=== PATIENT | female | born 1990 | race Caucasian/White ===

== ENCOUNTER 2016-10-16 01:23 | Emergency (ER) | payer SELFPAY ==
[~2016-10-16] VITALS: Ht 157.5 cm; Wt 62.6 kg
[~2016-10-16 01:23] MED LIST: AMOX500C3 PO; CLAR500T3 PO; FAMO20TA11 PO; PANT40TA PO; PROP80TA2 PO
[2016-10-16 01:25] VITALS: Ht 157.5 cm; Wt 62.6 kg
[2016-10-16] MEDS ORDERED: FAMOTIDINE 20MG/102 ML D5W IV STA (01:40)
[2016-10-16] MEDS ORDERED: ONDANSETRON INJ 2 MG/ML 2 ML VIAL IV STA (01:40)
[2016-10-16] MEDS ORDERED: LIDOCAINE HCL 2% VISC SOLN 20 ML UDC ONE (01:44)
[2016-10-16] MEDS ORDERED: ALUMINUM/MAGNESIUM SUSP 30 ML UDC ONE (01:44)
[2016-10-16] MEDS ORDERED: SODIUM CHLORIDE 0.9% 1000ML 1,000 ML IV ONE (01:45)
[2016-10-16] MEDS ORDERED: GI COCKTAIL PO ONE (01:45)
[2016-10-16 02:18] LABS: BUN/CREATININE RATIO 29.9 (10-20); CALCIUM 8.3 mg/dl (8.5-10.1); CREATININE 0.58 mg/dl (0.60-1.20); POTASSIUM 3.4 mmol/L (3.5-5.1)
[2016-10-16 02:21] LABS: ALB/GLOB RATIO 1.1 (0.9-2)
[2016-10-16 02:25] LABS: BASO % 0.2 %; BASO ABS # 0.02 K/uL (0-0.2); COMPLETE YES; EOS % 1.1 %; HEMATOCRIT 41.9 % (37-47); IG% 0.2 %; LYMPH % 15.4 %; LYMPH ABS # 2.03 K/uL (1.2-3.4); MEAN CELL VOLUME 87.8 fL (80-100); MEAN CORPUSCULAR HEMOGLOBIN 30.6 pg (25-34); MEAN CORPUSCULAR HGB CONC 34.8 g/dl (32-36); MEAN PLATELET VOLUME 12.9 fL (7.4-10.4); MONO % 5.5 %; NEUT % 77.6 %; PLATELET COUNT 85 K/uL (130-400); PLT ESTIMATE DECREASED; RED BLOOD COUNT 4.77 M/uL (4.2-5.4)
[2016-10-16] MEDS ORDERED: ONDA4TAB10 SL (03:01)
[2016-10-16] MEDS ORDERED: PANT40TA PO (03:01)
[2016-10-16 03:05] VITALS: BP 101/59; PULSE 83; TEMP 36.9; O2SAT 96
--- NOTE | 2016-10-16 08:46 | DIAGNOSTIC IMAGING REPORT ---
PA CHEST WITH ABDOMINAL SERIES CLINICAL HISTORY: Epigastric abdominal pain. Nausea and vomiting. FINDINGS: A PA chest radiograph is compared to study dated 06/20/2016. The cardiomediastinal silhouette is unremarkable. Mild elevation of the right hemidiaphragm is similar to previous. The lungs and pleural spaces are clear. No pneumothorax is seen. The bony thorax is grossly intact. Supine and erect abdominal radiographs are compared to study dated 06/20/2016 and correlated with abdominal CT dated 09/06/2016. There is a nonobstructed abdominal bowel gas pattern. No intraperitoneal free air is seen. There is mild to moderate colonic fecal retention. No abnormal abdominal calcifications are identified. The lumbosacral spine and bony pelvis appear intact. IMPRESSION: 1. No active disease in the chest. 2. Unremarkable abdominal radiographs. Electronically signed by: Roberto Vo M.D. 10/16/2016 8:44 AM
--- NOTE | 2016-10-16 22:09 | EMERGENCY ROOM VISIT NOTE ---
History First contact with patient: 01:30 Chief Complaint: ABDOMINAL PAIN Stated Complaint: ABD PAIN Nursing Triage Summary: Patient c/o abdominal pain that began 3 hours [facility] n/v[facility] History of Present Illness The patient is a 26 year old female who presents to the Emergency Room with complaints of epigastric abdominal pain which began about 3 hours ago. The patient did have one episode of emesis, which she states was red in nature. She has been nauseated since, but has not had repeat vomiting. The patient has a history of H. pylori infection that was treated as an outpatient several months ago. She's not had fever or chills. She does not have lower abdominal pain. She denies chance of . She is no difficulty using the bathroom , and is without a history of abdominal surgery. She previously was on Pepcid, but has not had this medication in more than one month. She has not taken anything [id number] for her symptoms. Review of Systems More than 10 systems were reviewed and otherwise negative with the exception of history of present illness. Past Medical/Surgical History Medical Problems: (1) History of Helicobacter pylori infection Family History No pertinent family history Social History Smoking Status: Current Every Day Smoker Alcohol Use: occasionally Drug Use: none Marital Status: single Housing Status: lives with roommate Occupation Status: unemployed Current/Historical Medications Scheduled Famotidine (Pepcid), 20 MG PO DAILY Ondasetron Odt (Zofran Odt), 4 MG SL Q6H Pantoprazole Sodium (Protonix), 40 MG PO QAM Pantoprazole Sodium (Protonix), 40 MG PO BID Propranolol (Inderal), 80 MG PO BID Allergies Coded Allergies: No Known Allergies (Verified , 10/16/16) Physical Exam Vital Signs Date Time Temp Pulse Resp B/P Pulse Ox O2 Delivery O2 Flow Rate FiO2 10/16/16 03:05 36.9 83 16 101/59 96 10/16/16 02:47 83 16 101/59 96 Room Air 10/16/16 01:25 36.9 97 18 106/69 99 Room Air Pain Rating (0-10): 2.0 Physical Exam VITALS: Vitals are noted on the nurse's note and reviewed by myself. Vital signs stable. GENERAL: Well-developed, well-nourished, female, who is in no acute distress and resting comfortably. Patient is cooperative with the examination. HEAD: Normocephalic atraumatic. HEART: Regular rate and rhythm without murmurs gallops or rubs. LUNGS: Clear to auscultation bilaterally without wheezes, rales or rhonchi. No retractions or accessory muscle use. ABDOMEN: Positive normal bowel sounds x 4. Soft with mild epigastric tenderness on palpation. No lower abdominal tenderness. No rebound or guarding. No CVA tenderness. MUSCULOSKELETAL: No muscle atrophy, erythema, or edema noted. Full range of motion without joint tenderness in all extremities. NEURO: Patient was alert and oriented to person place and time. CN II through XII grossly intact. Medical Decision & Procedures ER Provider Diagnostic Interpretation: PA CHEST WITH ABDOMINAL SERIES CLINICAL HISTORY: Epigastric abdominal pain. Nausea and vomiting. FINDINGS: A PA chest radiograph is compared to study dated 06/20/2016. The cardiomediastinal silhouette is unremarkable. Mild elevation of the right hemidiaphragm is similar to previous. The lungs and pleural spaces are clear. No pneumothorax is seen. The bony thorax is grossly intact. Supine and erect abdominal radiographs are compared to study dated 06/20/2016 and correlated with abdominal CT dated 09/06/2016. There is a nonobstructed abdominal bowel gas pattern. No intraperitoneal free air is seen. There is mild to moderate colonic fecal retention. No abnormal abdominal calcifications are identified. The lumbosacral spine and bony pelvis appear intact. IMPRESSION: 1. No active disease in the chest. 2. Unremarkable abdominal radiographs. Laboratory Results 10/16/16 01:45 Red Blood Count 4.77, Mean Corpuscular Volume 87.8, Mean Corpuscular Hemoglobin 30.6, Mean Corpuscular Hemoglobin Concent 34.8, Mean Platelet Volume 12.9, Neutrophils (%) (Auto) 77.6, Lymphocytes (%) (Auto) 15.4, Monocytes (%) (Auto) 5.5, Eosinophils (%) (Auto) 1.1, Basophils (%) (Auto) 0.2, Neutrophils # (Auto) 10.24, Lymphocytes # (Auto) 2.03, Monocytes # (Auto) 0.73, Eosinophils # (Auto) 0.15, Basophils # (Auto) 0.02 10/16/16 01:45 Test 10/16/16 01:45 White Blood Count 13.20 K/uL (4.8-10.8) Red Blood Count 4.77 M/uL (4.2-5.4) Hemoglobin 14.6 g/dL (12.0-16.0) Hematocrit 41.9 % (37-47) Mean Corpuscular Volume 87.8 fL (80-100) Mean Corpuscular Hemoglobin 30.6 pg (25-34) Mean Corpuscular Hemoglobin Concent 34.8 g/dl (32-36) Platelet Count 85 K/uL (130-400) Mean Platelet Volume 12.9 fL (7.4-10.4) Neutrophils (%) (Auto) 77.6 % Lymphocytes (%) (Auto) 15.4 % Monocytes (%) (Auto) 5.5 % Eosinophils (%) (Auto) 1.1 % Basophils (%) (Auto) 0.2 % Neutrophils # (Auto) 10.24 K/uL (1.4-6.5) Lymphocytes # (Auto) 2.03 K/uL (1.2-3.4) Monocytes # (Auto) 0.73 K/uL (0.11-0.59) Eosinophils # (Auto) 0.15 K/uL (0-0.5) Basophils # (Auto) 0.02 K/uL (0-0.2) RDW Standard Deviation 41.6 fL (36.4-46.3) RDW Coefficient of Variation 12.9 % (11.5-14.5) Immature Granulocyte % (Auto) 0.2 % Immature Granulocyte # (Auto) 0.03 K/uL (0.00-0.02) Platelet Estimate DECREASED Anion Gap 10.0 mmol/L (3-11) Est Creatinine Clear Calc Drug Dose 126.8 ml/min Estimated GFR () 146.4 Estimated GFR (Non- 126.3 BUN/Creatinine Ratio 29.9 (10-20) Calcium Level 8.3 mg/dl (8.5-10.1) Total Bilirubin 0.2 mg/dl (0.2-1) Aspartate Amino Transf (AST/SGOT) 14 U/L (15-37) Alanine Aminotransferase (ALT/SGPT) 19 U/L (12-78) Alkaline Phosphatase 51 U/L (45-117) Total Protein 7.3 gm/dl (6.4-8.2) Albumin 3.8 gm/dl (3.4-5.0) Globulin 3.5 gm/dl (2.5-4.0) Albumin/Globulin Ratio 1.1 (0.9-2) Lipase 116 U/L (73-393) Medications Administered Medications (Trade) Dose Ordered Sig/Harjit Route Start Time Stop Time Status Last Admin Dose Admin Sodium Chloride (Nss 1000ml) 1,000 ml @ 999 mls/hr Q1H1M ONCE IV 10/16/16 01:45 10/16/16 02:45 DC 10/16/16 01:49 999 MLS/HR Ondansetron HCl (Zofran Inj) 4 mg NOW STAT IV 10/16/16 01:40 10/16/16 01:42 DC 10/16/16 01:48 4 MG Famotidine (Pepcid 20mg/100 ml) 20 mg ONE STAT IV 10/16/16 01:40 10/16/16 01:43 DC 10/16/16 01:48 20 MG Al Hydroxide/Mg Hydroxide (Maalox Susp) 30 ml STK-MED ONCE .ROUTE 10/16/16 01:44 10/16/16 01:45 DC 10/16/16 01:48 30 ML Lidocaine HCl (Viscous Lidocaine 2% Soln) 20 ml STK-MED ONCE .ROUTE 10/16/16 01:44 10/16/16 01:45 DC 10/16/16 01:48 20 ML ED Course Physical exam and history were performed. Nursing notes and EMR were reviewed. Patient appears to have epigastric abdominal pain with one episode of emesis over the past 3 hours. I examined the patient does not appear toxic, but she does have some mild epigastric tenderness on palpation. Extremities she has a history of H. pylori in the past IV access was established and labs were obtained. The patient was hydrated with normal saline and given IV Protonix. She is also given a GI cocktail. Plain films of the chest and abdomen were ordered. We were not able to obtain an emesis sample for guaiac testing. The patient's blood work is as above and was reviewed. She does not have a significantly elevated white blood count, anemia, bandemia, or gross electrolyte imbalance. Lipase and transaminases are nondiagnostic. The patient 's x-rays are without evidence of free air or significant obstructive process. She did have notable improvement of her epigastric abdominal pain with the GI cocktail. I discussed options of care with the patient, who feels comfortable with discharge home. I suspect her discomfort is related to a gastritis, and we will give her a continuation course of a proton inhibitor. The patient needs to follow with her PCP or GI the next few days for a recheck. If she is not able to see them, I did recommend that she return to the ER for repeat abdominal examination. She certainly is invited back if she has worsening symptoms. The patient voiced understanding of this plan and rated her discomfort a 0/10 at the time of departure. The chart was completed utilizing [employer] Speech Voice Recognition Software. Grammatical errors, random word insertions, pronoun errors, and incomplete sentences are an occasional consequence of this system due to software limitations, ambient noise, and hardware issues. Any formal questions or concerns about the content, text, or information contained within the body of this dictation should be directly addressed to the provider for clarification. . Medical Decision Differential diagnosis: Etiologies such as appendicitis, diverticulitis, PUD, biliary pathology, UTI, pancreatitis, obstruction, mesenteric ischemia, aortic pathology, infections, inflammatory bowel disease, renal colic, as well as others were entertained. Impression Primary Impression: Epigastric abdominal pain Departure Information Dispostion Home / Self-Care Condition GOOD Prescriptions Ondasetron Odt (ZOFRAN ODT) 4 Mg Tab 4 MG SL Q6H for Nausea, #12 TAB Prov: Preet Sahni PA-C 10/16/16 Pantoprazole Sodium (PROTONIX) 40 Mg Tab 40 MG PO BID, #30 TAB Prov: Preet Sahni PA-C 10/16/16 Referrals Mando Cartagena MD Forms HOME CARE DOCUMENTATION FORM, IMPORTANT VISIT INFORMATION Patient Instructions A Signature Page, [facility] Additional Instructions You were seen and evaluated today on an emergency basis only. This is not a substitute for, or an effort to provide, complete comprehensive medical care. It is not possible to recognize and treat all injuries or illnesses in a single emergency department visit. For this reason it is recommended that you followup with your primary care physician, medical records library professor, or back in the emergency department in the next 1 -2 days for recheck of your symptoms. We have provided information for local medical records library professor, Dr. Diehl. You will likely need further evaluation by gastroenterology for your symptoms. If symptoms return or worsen please return immediately. Zofran 1 tablet every 6 hrs as needed for nausea. Take Protonix 40 mg twice daily You are welcome to return to the emergency department anytime with new, worsening, or concerning symptoms.
== END 2016-10-16 03:05 | disposition home or self-care (01) ==
LOC: C.EDB 01:24
DX: R10.13 Epigastric pain (principal); F17.200 Nicotine dependence, unspecified, uncomplicated

== ENCOUNTER 2016-11-16 14:11 | Emergency (ER) | payer SELFPAY ==
[~2016-11-16] VITALS: Ht 157.5 cm; Wt 64.1 kg
[~2016-11-16 14:11] MED LIST changes: -AMOX500C3 PO; -CLAR500T3 PO; +ONDA4TAB10 SL
[2016-11-16 14:20] VITALS: BP 111/73; PULSE 84; TEMP 37.2; O2SAT 96; Ht 157.5 cm; Wt 64.1 kg
--- NOTE | 2016-11-16 14:51 | DIAGNOSTIC IMAGING REPORT ---
RIGHT HAND 3 VIEWS CLINICAL HISTORY: Thumb pain. Fall. FINDINGS: 3 views of the right hand are obtained. No prior studies are available for comparison at the time of dictation. The skeletal structures are well mineralized. No fracture is seen. The joint spaces of the hand are well-maintained. The overlying soft tissues are within normal limits. IMPRESSION: Unremarkable radiographic assessment of the right hand. Electronically signed by: Roberto Vo M.D. 11/16/2016 2:49 PM Dictated Date/Time: 11/16/2016 2:48 PM
--- NOTE | 2016-11-16 15:25 | EMERGENCY ROOM VISIT NOTE ---
ED Visit Note First contact with patient: 14:27 Chief Complaint: Slipped on Back and Hurt Wrist/Fingers History of Present Illness: Patient is a 26-year-old female who presents to the emergency department today for evaluation of her RIGHT wrist/thumb injury. She reports that she slipped on steps waiting on the affected hand resulting in a moderate amount of pain to the base of the thumb. She is tried nothing for pain this point. She rates her current discomfort as an 8/10. She denies a previous history of fracture or injury to the affected digit. She denies any associated wrist pain, forearm pain, elbow pain, or shoulder pain. Medications: Reviewed and discussed with the patient. Allergies: No known allergies. PMH: No pertinent past medical history. SHx: Patient is a 26-year-old female who lives locally. ROS: All pertinent positive and negative review of systems are appropriately documented in the History of Present Illness. Physical Exam: VITAL SIGNS - Vital signs and nursing notes were reviewed. GENERAL - 26-year-old female appearing her stated age and in noticeable discomfort throughout the exam. MUSCULOSKELETAL - Active ROM of the RIGHT wrist was assessed as full. Point tenderness noted to the proximal RIGHT thumb overlying the MCP joint. Limited range of motion of the thumb secondary to discomfort. No point tenderness over the anatomic snuffbox. +3/5 strength appreciated RIGHT versus left secondary to patient discomfort. NEUROLOGIC - SENSORY: Spinothalamic tract was found to be intact with ability to discriminate sharp versus dull sensation at the level of the RIGHT elbow down to the fingertips. No sensory deficits of the dorsal column were appreciated utilizing light touch for evaluation. VASCULAR - Capillary refill was brisk. +3/5 radial pulse palpated. IMAGING: RIGHT HAND 3 VIEWS CLINICAL HISTORY: Thumb pain. Fall. FINDINGS: 3 views of the right hand are obtained. No prior studies are available for comparison at the time of dictation. The skeletal structures are well mineralized. No fracture is seen. The joint spaces of the hand are well-maintained. The overlying soft tissues are within normal limits. IMPRESSION: Unremarkable radiographic assessment of the right hand. ED Course: Patient was seen and evaluated by myself. Patient was provided an ice pack for comfort. X-ray of the affected hand was obtained. Imaging results as above. Imaging results were discussed with the patient who acknowledges understanding. Patient was provided a Velcro thumb spica splint for comfort. The patient will follow-up with orthopedic surgery or her primary care provider if her symptoms are not improving over the next week. She will return for any changing /worsening symptoms. Patient discharged home in good condition. In the evaluation and treatment of this patient, the following differential diagnoses were considered: Wrist Sprain, Wrist Fracture, Wrist Dislocation, Scapholunate Dissociation, Carpal Fracture, Metacarpal Fracture, Radial Styloid Process Fracture, Ulnar Styloid Process Fracture, or Carpal Tunnel Syndrome. Impression: RIGHT Thumb Sprain, Mechanical Fall Discharge Instructions: You have been treated in the Emergency Department for your RIGHT Thumb/Hand Sprain. For pain control, you can use the following xyen-gah-xudnjee medicines (if >12 yo): - Regular strength (325mg/tab) Tylenol (acetaminophen) 2 tabs every 4-6 hours as needed. Do not exceed 12 tablets in a 24 hour period. Avoid taking more than 4 grams (4000 mg) of Tylenol per day. This includes any other sources of acetaminophen you may take on a regular basis. - Regular strength (200 mg/tab) Advil (ibuprofen) 1-2 tabs every 4-6 hours as needed. Do not exceed a dose of 3200 mg per day. If this is a recent injury (<24 hrs), ice can be applied to the area of pain for the first 3 days to help decrease pain and inflammation. Use the splint for comfort for the next week. Follow-up with your primary care provider or orthopedic surgeon if your symptoms are not improving over the next week. Return to the Emergency Department if your current symptoms worsen despite treatment course outlined above, or if you develop any of the following symptoms : intractable pain despite aforementioned treatment course or new onset of numbness or tingling of the fingers. Current/Historical Medications No Active Prescriptions or Reported Meds Allergies Coded Allergies: No Known Allergies (Verified , 10/16/16) Vital Signs Date Time Temp Pulse Resp B/P Pulse Ox O2 Delivery O2 Flow Rate FiO2 11/16/16 14:20 37.2 84 16 111/73 96 Room Air Departure Information Impression Primary Impression: Thumb sprain Additional Impression: Fall Dispostion Home / Self-Care Condition GOOD Prescriptions No Active Prescriptions or Reported Meds Referrals No Doctor, Assigned (PCP) Patient Instructions ED Sprain Hand, [facility] Additional Instructions You have been treated in the Emergency Department for your RIGHT Thumb/Hand Sprain. For pain control, you can use the following dqob-fiz-lsgknfa medicines (if >12 yo): - Regular strength (325mg/tab) Tylenol (acetaminophen) 2 tabs every 4-6 hours as needed. Do not exceed 12 tablets in a 24 hour period. Avoid taking more than 4 grams (4000 mg) of Tylenol per day. This includes any other sources of acetaminophen you may take on a regular basis. - Regular strength (200 mg/tab) Advil (ibuprofen) 1-2 tabs every 4-6 hours as needed. Do not exceed a dose of 3200 mg per day. If this is a recent injury (<24 hrs), ice can be applied to the area of pain for the first 3 days to help decrease pain and inflammation. Use the splint for comfort for the next week. Follow-up with your primary care provider or orthopedic surgeon if your symptoms are not improving over the next week. Return to the Emergency Department if your current symptoms worsen despite treatment course outlined above, or if you develop any of the following symptoms : intractable pain despite aforementioned treatment course or new onset of numbness or tingling of the fingers. Problem Qualifiers Primary Impression: Thumb sprain Encounter type: initial encounter Sprain of finger site: metacarpophalangeal joint Laterality: right Qualified Codes: S63.641A - Sprain of metacarpophalangeal joint of right thumb, initial encounter Additional Impression: Fall Encounter type: initial encounter Qualified Codes: W19.XXXA - Unspecified fall, initial encounter
== END 2016-11-16 15:32 | disposition home or self-care (01) ==
LOC: C.EDB 14:13 → C.EDD 15:32
DX: S63.641A Sprain of metacarpophalangeal joint of right thumb, initial encounter (principal); W19.XXXA Unspecified fall, initial encounter

== ENCOUNTER 2016-12-26 18:34 | Emergency (ER) | payer SELFPAY ==
[~2016-12-26] VITALS: Ht 157.5 cm; Wt 61.2 kg
[2016-12-26 19:19] VITALS: TEMP 37; Ht 157.5 cm; Wt 61.2 kg
--- NOTE | 2016-12-26 19:48 | EMERGENCY ROOM VISIT NOTE ---
History First contact with patient: 19:25 Chief Complaint: THROAT PAIN/INJURY Stated Complaint: L SIDE OF NECK IS SWOLLEN AND HURTING STOMACH History of Present Illness The patient is a 26 year old female who presents to the Emergency Room with complaints of a swollen lump on the left side of the neck. The patient reports that she first noticed the swelling approximately 3 days ago. She states that it is worse with movement of the neck or touching the neck. She notes intermittent headaches. They are not the worst headaches of her life. She rates her overall discomfort 8/10. She has not been taking any medication for her symptoms. The patient denies any sore throat, earaches, cough, nasal discharge, neck stiffness, or fevers. Denies any lacerations or recent trauma. Review of Systems A complete 10-point Review of Systems was discussed with the patient, with pertinent positives and negatives listed in the History of Present Illness. All remaining Review of Systems questions can be considered negative unless otherwise specified. Past Medical/Surgical History Medical Problems: (1) History of Helicobacter pylori infection Social History Smoking Status: Current Every Day Smoker Alcohol Use: occasionally Drug Use: none Marital Status: single Housing Status: lives with roommate Occupation Status: unemployed Current/Historical Medications No Active Prescriptions or Reported Meds Allergies Coded Allergies: No Known Allergies (Verified , 10/16/16) Physical Exam Vital Signs Date Time Temp Pulse Resp B/P Pulse Ox O2 Delivery O2 Flow Rate FiO2 12/26/16 20:03 85 18 104/64 97 12/26/16 19:53 99 Room Air 12/26/16 19:19 37.0 97 18 115/74 98 Room Air Physical Exam VITALS: Vitals are noted on the nurse's note and reviewed by myself. Vital signs stable. GENERAL: This is a 26-year-old female, in no acute distress, nondiaphoretic, well-developed well-nourished. SKIN: Capillary reflex less than 2 seconds. EYES: PERRLA, EOMs intact. No conjunctivitis. EARS: Tympanic members pearly alves bilaterally. No erythema or effusion. NOSE: Turbinates without inflammation. No discharge. MOUTH: Mucous membranes moist. No erythema or edema of the posterior oropharynx. No exudate or tonsillar swelling. NECK: There is a prominent left anterior cervical lymph node. It is tender to palpation. There is no overlying erythema or induration. Full range of motion of the neck. No meningismus. HEART: Regular rate and rhythm without murmurs gallops or rubs. LUNGS: Clear to auscultation bilaterally without wheezes, rales or rhonchi. NEURO: Patient was alert and oriented to person place and time. Medical Decision & Procedures Medical Decision Differential diagnosis includes lymphadenopathy, Francisco's angina, abscess, malignancy, strep pharyngitis, mononucleosis, among others. The patient was evaluated as above. She has a prominent left anterior cervical lymph node. She is otherwise asymptomatic. Conservative measures were discussed with the patient. She was instructed to follow-up with her primary care provider for further evaluation of his symptoms and return here for any worsening symptoms. She verbalized understanding of my assessment and treatment plan was discharged home in good condition. Impression Primary Impression: Lymphadenopathy of head and neck Departure Information Dispostion Home / Self-Care Condition GOOD Prescriptions No Active Prescriptions or Reported Meds Referrals Marce Redman P.A. (PCP) Patient Instructions Lymphadenopathy, [facility] Additional Instructions You were evaluated today for lymphadenopathy (a swollen lymph node or gland in your neck). Ibuprofen (Advil) 400-600 mg every 6 hours until swelling resolves. Follow-up with your primary care provider within 48 hours for further evaluation of your neck pain. Return to the emergency department with increased swelling, difficulty breathing , difficulty swallowing, fevers, neck stiffness or any other new/concerning symptoms.
[2016-12-26 20:03] VITALS: BP 104/64; PULSE 85; O2SAT 97
== END 2016-12-26 20:05 | disposition home or self-care (01) ==
LOC: C.EDB 18:35 → C.EDD 20:05
DX: R59.1 Generalized enlarged lymph nodes (principal); F17.200 Nicotine dependence, unspecified, uncomplicated